=== PATIENT | male | born 1945 | race Caucasian/White ===

== ENCOUNTER 2021-12-04 11:40 | Inpatient (IN) | payer MEDICARE, OTHER, MEDICAID ==
[~2021-12-04] VITALS: Ht 185.4 cm; Wt 70.5 kg
[~2021-12-04 11:40] MED LIST: LEVOTHYROXINE100 MC2 PO; LIPITOR40 MG PO; LOW DOSE ASPIRI81 MG PO
[2021-12-09] MEDS ORDERED: PRESERVISION A1 EAC4 PO (13:21)
[2021-12-09] MEDS ORDERED: MULTI VITAMIN1 EACH PO (13:21)
[2021-12-09] MEDS ORDERED: EMERGEN-C 500500 MG PO (13:21)
[2021-12-09] MEDS ORDERED: OSTERA TABLET1 EACH PO (13:22)
[2021-12-09] MEDS ORDERED: FISH OIL 1,2001 EAC8 PO (13:22)
[2021-12-09] MEDS ORDERED: GLUCOSAMINE H1500 MG PO (13:23)
[2021-12-09] MEDS ORDERED: TURMERIC 450-51 EACH PO (13:24)
[2021-12-09] MEDS ORDERED: PROBIOTIC1 EAC6 PO (13:24)
[2021-12-14] MEDS ORDERED: LEVOTHYROXINE100 MCG PO (09:23)
--- NOTE | 2021-12-14 16:50 | EKG ---
[facility] [address] [facility] [place], [place] [address] Signed Normal sinus rhythm Normal ECG No previous ECGs available Confirmed by VALARIE PENG MD ([id number]) on 12/14/2021 4:50:46 PM Electronically Signed By: VALARIE PENG MD 12/14/21 1650 PATIENT NAME: MELL VIEIRA Electrocardiogram DATE OF : 47 PHYSICIAN: VALARIE PENG MD REPORT #: [id number] REPORT IS CONFIDENTIAL AND NOT TO BE RELEASED WITHOUT AUTHORIZATION
--- NOTE | 2021-12-19 14:14 | OR ---
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 POSTOPERATIVE DIAGNOSES: 1. 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 2. 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 PROCEDURES: 1. Laparotomy with left colectomy with end to end colocolostomy... prolonged complicated and difficult ( greater than 5 hours) 2. Partial diaphragm excision with closure. 3. Total splenectomy ANESTHESIA: General endotracheal, Nicho Vin, END MAKER and postoperative rectus sheath block. INDICATION: This 76-year-old white man, who is a patient of Dr. Kizzy Price. He was seen in October with left upper abdominal pain. A CT scan was performed, which showed thickening of the splenic flexure and the variable appearance of the inferior pole of the spleen apparently in continuity with the splenic flexure. He had numerous diverticula of the left colon. He was considered to have possible splenic flexure diverticulitis; planned followup CT scan in November confirmed ongoing concentric thickening of the splenic flexure itself and heterogeneity of the inferior pole of the spleen. On that basis, he was referred to me by Dr Price for colonoscopy. Colonoscopy was performed on December 02, 2021, with findings of diffuse B-cell lymphoma of the splenic flexure of the colon in contiguity to the lower pole of the spleen. Discussion with Dr. Estrada, medical oncologist affirms a plan for partial colectomy and splenectomy and additional treatment depending on operative findings. The patient understands the risks of bleeding, infection, anastomotic failure of the colon, and some increased hazard of infectious problems related to the splenectomy. He has undergone Pneumovax vaccination prior to splenectomy electively. Electronically Signed By: AYUSH WILLS MD 12/19/21 1414 PATIENT NAME: MELL VIEIRA OPERATIVE REPORT DATE OF : 47 REPORT #: [id number] PHYSICIAN: YAUSH WILLS MD PCP: KIZZY PRICE MD REPORT IS CONFIDENTIAL AND NOT TO BE RELEASED WITHOUT AUTHORIZATION [facility] [address] [place], [place] [address] Signed FINDINGS: The tumor of the colon was in direct contiguity to the inferior pole of spleen and impressively infiltrative into the left diaphragm. En bloc resection was undertaken including portion of the diaphragm. Numerous diverticula were noted of the left colon. The end-to-end colocolostomy was undertaken with good clinical result. There were adhesive changes to the stomach. Gerota's fascia of the left kidney was inflammed related to the tumor itself and adherent to the splenic flexure of the colon as well. The operation was quite prolonged complicated and difficult on the basis of the inflammatory and infiltrative process. Resection was complex but complete. There is believed to be no remaining lymphoma in the operative area and good viability of the colonic anastomosis. DESCRIPTION OF PROCEDURE: The patient was brought to the operating room, given a general endotracheal anesthetic. He had undergone a complete bowel prep including oral and IV antibiotics. Sequential compression device stockings were used and heparin subcutaneously administered. After satisfactory general endotracheal anesthesia, a Schwartz catheter was placed. The abdomen was clipped and prepared with chlorhexidine solution and draped sterilely. An upper midline incision was made just above the umbilicus and the abdomen was entered without problem. The patient has a thin body habitus, which was quite fortunate. Intra-abdominal inspection showed no sign of ascites or carcinomatosis. There was Endomark tattoo evidence in the splenic flexure itself. Palpation of this area showed a dense mass of the splenic flexure of the colon in continuity to the splenic inferior pole and hilum. The spleen itself was definitely not mobile and had intense infiltrative changes to the left posterolateral abdominal wall. The small bowel was otherwise normal. The colon had multiple diverticula of the descending colon. The stomach itself was normal. There was no sign of lesser sac adenopathy. The gallbladder was normal as was the liver. A small splenule was noted in the omentum on the left side. My initial inclination was to provide for splenectomy or mobilization of the spleen prior to planned colectomy. A Bookwalter retractor was affixed to the table as a slow bowel prep to the right side of the abdomen with laparotomy packs. The stomach was noted to be normal. Palpation of the lateral aspect of the spleen showed to be free in the superior posterior aspect, but quite densely adherent inferiorly in the lower pole. Indeed, there was significant edema and Endomark tattoo dye directly in the inferior pole and medial aspect of the spleen indicative of the lymphoma of the colon in contiguity to the spleen itself. Colonic mobilization was undertaken at the left colon and blunt dissection carried Electronically Signed By: AYUSH WILLS MD 12/19/21 1414 PATIENT NAME: MELL VIEIRA OPERATIVE REPORT DATE OF : 47 REPORT #: [id number] PHYSICIAN: AYUSH WILLS MD PCP: KIZZY PRICE MD REPORT IS CONFIDENTIAL AND NOT TO BE RELEASED WITHOUT AUTHORIZATION [id number] [place], [place] [address] Signed cephalad. Gerota's fascia of the left colon was identified and a plane was developed there. Further dissection on the capsule of the spleen showed the inferolateral aspect to be infiltrated to the abdominal wall. Using meticulous care and electrocautery dissection, portion of peritoneum and ultimately a portion of the diaphragm was excised in continuity with the infiltrative mass. A defect was seen within the left pleural space. There is no sign of pulmonary or pleural pathology noted. As the patient was on positive-pressure ventilation with the ventilator, there was no worry for decline in his cardiopulmonary status due to the defect in the diaphragm performed with dissection. This dissection was quite laborious and quite significantly difficult related to inflammatory changes, edema, and the tumor itself. The lateral attachments of the spleen were quite thickened and were incised with electrocautery to allow for progressive mobilization of the spleen toward the midline. There were found to be adhesions in the medial aspect of the upper pole of the spleen to the lesser curve of the stomach itself. Areas on the greater curve of the stomach ( short gastrics) were secured with clips or 3-0 silk as needed. It became clear that typical rotation of the spleen towards midline was unlikely to be forthcoming to allow for complete vascular control on its own. On that basis, the peritoneal attachments of the anterior aspect of the pancras and the splenic hilum were carefully divided, ultimately identifying the splenic artery and splenic vein. These were secured with tonsil clamps and division undertaken. Double ligation with O silk ties secured them well. There were dense adhesions to gerotas fascia posteriorly which were freed without injury to the left kidney. By this point, the spleen was entirely mobilized, and in continuity with the splenic flexure of the colon itself. The lesser sac was entered reflecting the stomach cephalad and dividing portions of the omentum in the mid colic area. This allowed for good visualization of the transverse mesocolon. The middle colic artery dominant branch was identified and incision made to the left of it to provide a margin on the lymphoma itself. Dissection was carried reasonably widely, inferiorly, and superiorly. Small branches representing the vascular arcade near the colonic wall were secured with hemostats and 0 silk ties. A SUZAN stapling device was used to transect the mid left transverse colon. Further mobility of the omentum and the mesocolon inferiorly was undertaken. There were numerous diverticula of the descending colon. An area identified as the sigmoidal branch to the sigmoid colon was identified and decided as the inferior margin of colonic resection. The left colonic mesentery was divided and sequential application of hemostats and silk ties undertaken. A SUZAN stapling device was used to Electronically Signed By: AYUSH WILLS MD 12/19/21 1414 PATIENT NAME: MELL VIEIRA OPERATIVE REPORT DATE OF : 47 REPORT #: [id number] PHYSICIAN: AYUSH WILLS MD PCP: KIZZY PRICE MD REPORT IS CONFIDENTIAL AND NOT TO BE RELEASED WITHOUT AUTHORIZATION [facility] [address] [place] [id number] Signed transect the colon just cephalad to the sigmoid itself. The specimen was carefully explanted from the abdomen. It is notable that capsular disruption occurred during the final mobilization of the spleen and although there was no spilled splenic tissue proper at least one splenule was noted in the resected specimen. The specimen was photographed, opened on the back table as well, and the lymphoma at the splenic flexure was quite notable. Irrigation was undertaken. The upper abdomen in the retroperitoneal area, the tail of pancreas could be easily identified and so far as can be told was not harmed in any way. Clips and silk sutures used for any sites that were still oozing. The area was then packed with gauze. Attention was turned to the colonic anastomosis. Although not perfectly size matched, an end-to-end colocolostomy was deemed most appropriate. This was accomplished in a 2-layer technique of interrupted 3-0 silk suture. The mesenteric defect was subsequently reapproximated with running 3-0 silk suture as well. Irrigation was undertaken throughout the abdomen and rolled laparotomy packs in the splenic bed were found to be hemostatic. Tisseel (fibrin glue) was sprayed generously in the upper abdomen near the splenic bed over the pancreas and in the region of the diaphragm. Repair of the diaphragmatic defect was certainly needed. Inspection in the pleural space showed lung, which had some pleural adhesion to the diaphragm far away from the area resected. The diaphragmatic defect was reapproximated with running 0 Prolene suture. Prior to securing the closure, a red rubber catheter was placed in the pleural space. The ict customer support officer provided full expansion of the lung and the red rubber catheter was suctioned upon its removal and then the diaphragm defect was secured with final knots. It is believed that the left pleural space have been evacuated of air and so, a postprocedure chest x-ray still pending. There were no other findings of concern in the abdomen and plans were then made for closure. Through a left lower quadrant incision, a 7-mm flat Brody drain was placed over the area of the tail of the pancreas on the unlikely possibility of pancreatic tail injury. It was secured the skin with nylon suture and attached to bulb suction. The stomach and remaining omentum were placed in the anatomic configuration. Notably, the anastomosis was in the left lower quadrant and no where near the lesser sac or pancreatic dissection had been undertaken. Attention was turned towards closure. The midline fascia was reapproximated with running bidirectional #1 PDS suture. Subcutaneous tissue was irrigated and skin was closed with running subcuticular 3-0 Vicryl. Steri-Strips were applied as was Acticoat dressing. The retroperitoneal drain on the left was attached to bulb suction and similarly dressed. He was ultimately extubated and transferred to the recovery room in Electronically Signed By: AYUSH WILLS MD 12/19/21 1414 PATIENT NAME: MELL VIEIRA OPERATIVE REPORT DATE OF : 47 REPORT #: [id number] PHYSICIAN: AYUSH WILLS MD PCP: KIZZY PRICE MD REPORT IS CONFIDENTIAL AND NOT TO BE RELEASED WITHOUT AUTHORIZATION [address] [address] Signed good condition having suffered no known complications. Blood loss was 300 mL. A postoperative chest x-ray is anticipated so as to assure no sign of excessive pneumothorax from partial diaphragmatic excision. MD STU Vilchis/NÉSTOR /[id number] cc: MD Antonio Jovel MD Copies: KIZZY PRICE MD, ROBERT C MD ~ Electronically Signed By: AYUSH WILLS MD 12/19/21 1414 PATIENT NAME: MELL VIEIRA OPERATIVE REPORT DATE OF : 47 REPORT #: [id number] PHYSICIAN: AYUSH WILLS MD PCP: KIZZY PRICE MD REPORT IS CONFIDENTIAL AND NOT TO BE RELEASED WITHOUT AUTHORIZATION
[2021-12-21] MEDS ORDERED: GAS RELIEF125 M1 PO (16:30)
[2021-12-21] MEDS ORDERED: FAMOTIDINE20 MG PO (16:30)
[2021-12-21] MEDS ORDERED: ACETAMINOPHEN500 MG PO (16:30)
[2021-12-21] MEDS ORDERED: IBUPROFEN600 MG PO (16:30)
--- NOTE | 2021-12-22 15:53 | DS ---
[facility] [address] [place], [place] [address] Signed ADMISSION DATE: 12/13/2021 DISCHARGE DATE: 12/21/2021 REASON FOR ADMISSION: This 76-year-old white man is a patient of Dr. Kizzy Price and was seen in October with left upper abdominal pain. CT scan was performed, which showed thickening of the splenic flexure and variable appearance of the inferior pole of the spleen in continuity with the splenic flexure. He had numerous diverticula of the left colon. He was considered to have possible splenic flexure diverticulitis. Plan followup CT scan in November confirmed ongoing concentric thickening of the splenic flexure itself and had originating of the inferior pole of the spleen and on that basis, he was referred by Dr. Price for colonoscopy. Colonoscopy performed by [place] on December 02, 2021, confirmed findings of diffuse B-cell lymphoma, splenic flexure of the colon in contiguity with the lower pole of the spleen. He is admitted at this time to undergo left partial colectomy and splenectomy in continuity for diffuse B-cell lymphoma. PERTINENT PHYSICAL EXAMINATION: GENERAL: Showed a thin white man, in no acute distress. NECK: Trachea is midline. LYMPHATIC: He had no supraclavicular or axillary adenopathy. ABDOMEN: Abdominal palpation showed no sign of splenic enlargement. He had no ascites. EXTREMITIES: Show no clubbing, cyanosis, or edema. HOSPITAL COURSE: On December 13, 2021, he underwent a midline laparotomy with left colectomy with end-to-end colocolostomy as well as resection of the spleen in continuity with the colon as well as partial diaphragm excision. Notably, the tumor included the splenic flexure. The lower pole of the spleen with a direct penetration into the left lower lateral diaphragmatic wall. Partial left diaphragm resection was performed in continuity.Repair of the diaphragm was undertaken concurrently. A drain was placed in the area of the splenic bed resection given the complexity of the excision and in caution for any type of pancreatic tail fluid leak. Postoperatively, he did quite well initially, but then developed a generalized ileus. He did not require a nasogastric tube. The ileus resolved with correction of his electrolytes and supportive care and he advanced in his diet, ultimately tolerating a regular diet. The peripancreatic drain that had been placed showed drainage only of serosanguineous fluid. Some of the fluid was obtained for evaluation and showed minimal amylase level and it was removed on the day of discharge. By the day of discharge, he is ambulating well, tolerating a regular diet without problem, has minimal incisional pain managed only by non-opiate medications. Electronically Signed By: AYUSH WILLS MD 12/22/21 1553 PATIENT NAME: MELL VIEIRA DISCHARGE SUMMARY DATE OF : 47 REPORT #: [id number] PHYSICIAN: AYUSH WILLS MD PCP: KIZZY PRICE MD REPORT IS CONFIDENTIAL AND NOT TO BE RELEASED WITHOUT AUTHORIZATION [address] [address] Signed It is anticipated he will have further evaluation by Dr. Citlalli Shi, medical oncologist. This likely will include bone marrow biopsy and other interventions. To our knowledge, he has no residual lymphoma grossly and his final pathology report is still pending. FOLLOWUP PLAN: He is return to see me in approximately 3-4 weeks. He will call on Thursday to set up an appointment. Additionally, we will coordinate a medical oncology consultation with Dr. Shi. DISCHARGE MEDICATIONS: 1. Ibuprofen 600 mg p.o. q.6 hours as needed for pain, #30. 2. Also, Tylenol 500 mg two tablets p.o. q.6 hours as needed for pain, #30. 3. Simethicone 125 mg two tablets one p.o. q.6 hours as needed for "gas" #30, refill one. 4. Famotidine 20 mg p.o. b.i.d. #60, refill one. He will continue taking with his usual medications of: 1. Lipitor 40 mg p.o. daily. 2. Aspirin 81 mg p.o. daily. 3. Vitamin C. 4. PreserVision supplement one p.o. daily. 5. Multivitamin one p.o. daily. 6. Vitamin C 500 mg chewable tab p.o. daily. 7. Vitamin D one tablet p.o. daily. 8. Glucosamine 1500 mg p.o. daily. 9. Probiotic one tablet p.o. daily. 10. Turmeric capsule one p.o. daily. 11. Synthroid 100 mcg p.o. daily. DISCHARGE DIAGNOSIS: 1. Diffuse B-cell lymphoma at splenic flexure, contiguous with lower pole of the spleen and involvement of the portion of left diaphragm (status post complete resection with end-to-end colocolostomy). 2. Hypothyroidism. 3. Dyslipidemia. Ayush Wills MD Electronically Signed By: AYUSH WILLS MD 12/22/21 1553 PATIENT NAME: MELL VIEIRA ALEA DISCHARGE SUMMARY DATE OF : 47 REPORT #: [id number] PHYSICIAN: AYUSH WILLS MD PCP: KIZZY PRICE MD REPORT IS CONFIDENTIAL AND NOT TO BE RELEASED WITHOUT AUTHORIZATION [address] [place] [address] Signed /NÉSTOR /[id number] cc: MD Kizzy Edmonds MD Copies: CITLALLI SHI MD, RUSSEL J MD ~ Electronically Signed By: AYUSH WILLS MD 12/22/21 1553 PATIENT NAME: MELL VIEIRA DISCHARGE SUMMARY DATE OF : 47 REPORT #: [id number] PHYSICIAN: AYUSH WILLS MD PCP: KIZZY PRICE MD REPORT IS CONFIDENTIAL AND NOT TO BE RELEASED WITHOUT AUTHORIZATION
== END 2021-12-21 17:30 | disposition home or self-care (01) | DRG 821 ==
LOC: DSVR 12-13 09:00 → MS 12-13 09:00 → DS 12-13 13:25 → EDSTATUS 12-13 13:30 → DS 12-13 13:30 → MS 12-13 13:43
PROVIDERS: ADMIT Surgery; ATTEND Surgery
PROC: 0BBT0ZZ Excision of Diaphragm, Open Approach (ICD-10-PCS; 2021-12-13)
PROC: 07TP0ZZ Resection of Spleen, Open Approach (ICD-10-PCS; principal; 2021-12-13 13:25)
PROC: 0DTG0ZZ Resection of Left Large Intestine, Open Approach (ICD-10-PCS; 2021-12-13 13:25)
DX: C83.33 Diffuse large B-cell lymphoma, intra-abdominal lymph nodes (principal); C79.89 Secondary malignant neoplasm of other specified sites; K91.89 Other postprocedural complications and disorders of digestive system; K56.7 Ileus, unspecified; K57.30 Diverticulosis of large intestine without perforation or abscess without bleeding; E03.9 Hypothyroidism, unspecified; E78.5 Hyperlipidemia, unspecified; Z96.643 Presence of artificial hip joint, bilateral; Z20.822 Contact with and (suspected) exposure to COVID-19
CPT/HCPCS: 36415; 71045; 74018; 76942; 80048; 80053; 82150; 85025; 85060; 86850; 86900; 86901; 86922; 88305; 93005; 93010; A9270; C9803; J0694; J1100; J1644; J1885; J2001; J2270; J2370; J2405; J2704; J2795; J3010; J7121; U0003

== ENCOUNTER 2022-01-27 15:12 | Inpatient (IN) | payer MEDICARE, OTHER, MEDICAID ==
[~2022-01-27] VITALS: Ht 185.4 cm; Wt 69.0 kg
[~2022-01-27 15:12] MED LIST changes: +ACETAMINOPHEN500 MG PO; +FAMOTIDINE20 MG PO; +FISH OIL 1,2001 EAC8 PO; +GAS RELIEF125 M1 PO; +GLUCOSAMINE H1500 MG PO; +IBUPROFEN600 MG PO; +LEVOTHYROXINE100 MCG PO; +MULTI VITAMIN1 EACH PO; +PRESERVISION A1 EAC4 PO; +PROBIOTIC1 EAC6 PO; +TURMERIC 450-51 EACH PO; +VITAMIN C1000 MG PO; +VITAMIN D325 MCG PO
--- NOTE | 2022-01-28 02:26 | NUR ---
PATIENT ARRIVED TO THE FLOOR VIA STRETCHER. PATIENT ABLE TO PIVOT XFER WITH MINIMAL ASSISTANCE. VITALS TAKEN AND RECORDED. NG TO LWIS. IV INFUSING PER ORDER. PATIENT RATES PAIN AT A 2/10 AND DENIES THE NEED FOR PAIN MEDICATION AT THIS TIME. PATIENT DENIES ANY NAUSEA. PATIENT PLACEDON TELE #1O PER ORDER. PATIENT IS ON RA. CHELSEA RN REMAINS IN ROOM TO COMPLETED ADMISSION. ASSESMENT COMPLETED. CALL LIGHT IN REACH.
--- NOTE | 2022-01-28 02:42 | NUR ---
BOLUS FROM ED COMPLETED INFUSING. PATIENTS IV NOW INFUSING PER ORDER. PATIENT IS RESTING IN BED. PATIENT DENIES ANY PAIN OR NASUEA. NO NEEDS NOTED. CALL LIGHT IN REACH.
--- NOTE | 2022-01-28 03:46 | NUR ---
PT COMPLAINED OF 5/10 ABD PAIN. MEDICATED. IV CONTINUES PER JUN, NG TO SUCTION, HOB ELEVATED. EYES CLOSED, RESPONDS TO QUESTIONS. HAS USED THE URINAL SINCE ADMISSION. BED ALARM CONTINUES FOR SAFETY.
--- NOTE | 2022-01-28 03:48 | NUR ---
EMPTIED THE URINAL.
--- NOTE | 2022-01-28 04:28 | NUR ---
PATIENT IS RESTING IN BED WITH EYES CLOSED, RR 17. CALL LIGHT IN REACH.
--- NOTE | 2022-01-28 05:56 | NUR ---
PATIENTS VITALS TAKEN AND RECORDED. PATIENTS NG TO LWIS. PATIENTS IV INFUSING PER ORDER. PATIENTS INTAKE AND OUTPUT RECORDED. PATIENT DENIES ANY PAIN OR NAUSEA. NO NEEDS NOTED. CALL LIGHT IN REACH.
--- NOTE | 2022-01-28 07:41 | NUR ---
IV pump alarming, new bag IVF hung per order. Pt requests pain medication for 5/10 abd pain, 0.5mg dilaudid provided. Primary RN notified. Pt urinal emptied. no further needs at this time, call light in reach.
--- NOTE | 2022-01-28 07:45 | NUR ---
bed alarm going off, trying to get out of bed. ngt in place, back to bed, alarms on
--- NOTE | 2022-01-28 08:10 | NUR ---
WENT INTO PATIENT'S ROOM TO PUT MY NAME ON THE WHITEBOARD. PATIENT SAID HE WAS SWEATING SO I TOOK HIS TEMPUTURE IT WAS 98.1. SO I GAVE HIM A COOL WASH CLOTH TO PUT ON HIS FOREHEAD. NURSE NOTIFIED.
--- NOTE | 2022-01-28 08:15 | NUR ---
Spoke with Will. He states he cont. to live in a 1 story home alone. He has walking sticks if needed, but does not normally use. He provides his own care and does own shopping and cooking. His neighbors assisted him following his last surgery and brought in food, shopped, and transported him cynthia and to Dr.s bruner. They will assist him again. Pt denies needs and plans on dc to home. Denies financial issues.
--- NOTE | 2022-01-28 08:29 | NUR ---
eyes closed, on room air, NGT patent to LIWS. call light and oral swas at hands reach NPO. was medicated earlier per abd pain. Bed alarms in place
--- NOTE | 2022-01-28 10:28 | NUR ---
NGT TO LIWS, EYES CLOSED, NO RESP DISTRESS, CALL LIGHT AT HANDS REACH, BED ALARM IN PLACE
--- NOTE | 2022-01-28 10:47 | NUR ---
C/O ABD PAIN, MOANING, AWAKE, ALERT, MEDICATED WITH MORPHINE 4MG IV. RNGT TO LIWS IN PLACE DRAINING DARK BROWN DRAINAGE. USES URINAL. IVF INFUSING, NPO, ORAL SPONGES AT BEDSIDE
[2022-01-28] MEDS ORDERED: BORON PO (11:30)
--- NOTE | 2022-01-28 11:31 | NUR ---
MED REC COMPLETE
--- NOTE | 2022-01-28 12:13 | NUR ---
DR MOCTEZUMA IN ROOM TALKING TO PT ABOUT SURGERY, SURGICAL CONSENT SIGNED. CHLORHEININE WIPE DOWN DOWN, SCDS IN PLACE, CLEAN GOWN. PT UP TO CHAIR, CLEAN LINEN. SAV WHITMORE TO IRENA, PATENT. PT REASSURED, CLAMED DOWN, PROCEDURE PREOP AND POST OP EXPECTATIONS EXPLAINED, QUESTIONS ANSWERED TO HIS SATISFACTIO. CALL LIGHT AT HANDS REACH
--- NOTE | 2022-01-28 12:24 | NUR ---
PT TAKEN DOWN TO OR VIA BED BY OR NURSE RAMON
--- NOTE | 2022-01-28 12:30 | NUR ---
dakota in pacu notified of new order for cefoxitin, pt takes earlier to OR
--- NOTE | 2022-01-28 16:35 | NUR ---
76 YEAR OLD MALE PATIENT ADMITTED TO CCU FROM PACU WITH DX OF S/P COLECTOMY. REPORT RECIEVED FROM USER EXPERIENCE TEAM LEAD. PATIENT IS AWAKE, DENIES PAIN AT THIS TIME. NG TO CONTINUOUS LOW SUCTION. NO DRAINAGE NOTED, ABD BINDER IN PLACE. RODRIGUEZ CATH PATENT. ART LINE TO RIGHT RADIAL ARTERY INTACT AND ZEROED PER PROTOCOL. BP 9O/50. SCD'S ON. PATIENT IS ABLE TO FOLLOW COMMANDS AND ANSWERE QUESTIONS.
--- NOTE | 2022-01-28 16:49 | EKG ---
[facility] [address] [facility] [place] [address] Signed Sinus rhythm with premature supraventricular complexes Nonspecific ST abnormality Prolonged QT Abnormal ECG When compared with ECG of 13-DEC-2021 10:32, premature supraventricular complexes are now present ST now depressed in Inferior leads QT has lengthened Confirmed by VALARIE PENG MD ([id number]) on 01/28/2022 4:48:38 PM Electronically Signed By: VALARIE PENG MD 01/28/22 1648 PATIENT NAME: ISHAMELL ALEA Electrocardiogram DATE OF : 47 PHYSICIAN: VALARIE PENG MD REPORT #: [id number] REPORT IS CONFIDENTIAL AND NOT TO BE RELEASED WITHOUT AUTHORIZATION
--- NOTE | 2022-01-28 17:05 | NUR ---
01/28/22 1705 Chelsey Mckeon 1602 PT ARRIVED IN PACU AWAKE WITH NO C/O'S. ART LINE AND ABD BINDER IN PLACE FROM SURGERY. 1615 CCU RN AT BEDSIDE. PT WITH NO C/O'S. 1635 REPORT GIVEN TO CCU RN. BED PLUGGED IN.
--- NOTE | 2022-01-28 17:55 | NUR ---
SLEEPING, WAVE FORM TO ART LINE DAMPEN AT TIMES. REMAINS ON RA WOTH SAT 93-96. LAYING FLAT ON BACK.
--- NOTE | 2022-01-28 18:45 | NUR ---
DILAUDID 0.5 MG IV GIVEN FOR PAIN, REPOSITIONED TO RIGHT SIDE.
--- NOTE | 2022-01-28 20:32 | NUR ---
PATIENT RESTING IN BED. REPORTS BEING COMFORTABLE AT THIS TIME. DRESSING TO ABD CLEAN DRY AND INTAXT WITH ABD BINDER. RODRIUGEZ CATH DRAINING YELLOW URINE TO BEDSIDE BAG. ORAL CARE PROVIDED. NG TUBE TO LEFT NARE TO LIS. CALL LIGHT IN REACH AND CAN MAKE NEEDS KNOWN.
--- NOTE | 2022-01-28 22:01 | NUR ---
DR MOCTEZUMA CALLED FOR UPDATE ON PATIENTS BP. ORDER FOR STAT LACTIC ACID NOW. IF RESULTS GREATER THAN 2.0 GIVE A 500ML BOLUS OF LR X1 AND REPEAT LACTIC ACID IN 3 HOURS. ORDERS FOR MAP 60-65.
--- NOTE | 2022-01-28 22:08 | NUR ---
LAB AT BEDSIDE FOR DRAW. NG DRAINING DARK BROWN DISCHARGE TO LIS. ABD DRESSING REMAINS CLEAN DRY AND INTACT. ABD SOFT, TENDER WITH PALPATION. ABD BINER IN PLACE. CALL LIGHT IN REACH.
--- NOTE | 2022-01-28 22:39 | NUR ---
DR MOCTEZUMA NOTIFIED OF CRITICAL LACTIC ACID OF 2.2. 500ML BOLUS OR LR WILL BE GIVEN AND REPEAT LACTIC 3 IN 3 HOURS WILL BE ORDERED PER DR GONZALEZ. NOTIFIED OR ART LINE DC AND CLARIFIED DC RODRIGUEZ ORDERS. RODRIGUEZ WILL BE DC'D TOMORROW.
--- NOTE | 2022-01-29 00:23 | NUR ---
PATIENT CALLED FOR A MOUTH SWAB. RATES PAIN TO ABD 2/10. REPOSITIONED IN BED. EDUCATED ON MEDICATIONS. VS STABLE.
--- NOTE | 2022-01-29 02:29 | NUR ---
PATIENT CALLED FOR HELP REPOSITIONING. PILLOWS ADJUSTED. DENIES ANY OTHER NEEDS AT THIS TIME.
--- NOTE | 2022-01-29 05:21 | NUR ---
PATIENT RESTING IN BED. VS STABLE. CALL LIGHT IN REACH.
--- NOTE | 2022-01-29 07:30 | NUR ---
REPORT RECIEVED. PATIENT IS SLEEPING. NO DISTRESS NOTED.
--- NOTE | 2022-01-29 07:50 | NUR ---
Spoke with Will. He states bed is uncomfortable. NG remains in place and he states he is just not comfortable. He also states is concerned as he has an appt with the [facility] tomorrow and has not been able to notify them. Let him know I will call them with an update. Notified RN pt is uncomfortable.
--- NOTE | 2022-01-29 08:15 | NUR ---
AWAKE, ASSESSMENT DONE. NG TO LCS, DRAINAGE IS DARK BROWN IN COLOR. DENIES NAUSEA. ABD BINDER IN PLACE, OPEN UP ABD BINDER TO ASSESS ABD, NO BOWEL SOUNDS HEARD AT THIS TIME. DRESSING TO INCISION IS DRY AND INTACT. RODRIGUEZ CATH PATENT. C/O INCREASED ABD PAIN WITH COUGH AND MOVEMENT. ENC CDB. I.S. IS AT BEDSIDE. TALTO PATIENT ABOUT POC FOR THE DAY, INDICATES UNDERSTANDING.
--- NOTE | 2022-01-29 09:30 | NUR ---
DILAUDID 0.5 MG IV GIVEN FOR POST-OP PAIN.
--- NOTE | 2022-01-29 09:57 | NUR ---
TURNED TO RIGHT SIDE. MORE COMFORTALBE AFTER DILAUDID GIVEN AND POSITION CHANGE. WATCHING TV.
--- NOTE | 2022-01-29 11:07 | NUR ---
NO CHANGES, RESTING.
--- NOTE | 2022-01-29 12:10 | NUR ---
ASSESSMENT DONE. NO CHANGES IN ASSESSMENT. STATES THE PAIN MED HE HAD EARLIER DID HELP FOR A WHILE.
--- NOTE | 2022-01-29 12:45 | NUR ---
DR. MOCTEZUMA HERE TO SEE PATIENT. ORDERS RECIEVED. NG TUBE CLAMPED PER ORDERS. PLAN IS TO DC NGT AT 4 PM TODAY IF PATIENT NOT NAUSEATED AND RESIDUAL CHECK AT 4 IS < 250 ML. PATIENT IS AWARE OF THE POC.
--- NOTE | 2022-01-29 12:50 | NUR ---
OOB TO CHAIR WITH ASSIST. ADLS DONE. PATIENT MOVING WELL. HR TO 120 W/MOVEMENT, AT REST HR 108. DENIES DIZZINESS OR SHORTNESS OR BREATH WITH MOVEMENT.
--- NOTE | 2022-01-29 16:00 | NUR ---
stood at bedside to void, VOIDED 150 ML URINE. BACK TO BED WITH ASSIST. NG ASPIRATED FOR 70 ML OF STOMACH CONTENTS. NG DC'D PER ORDERS GIVEN EARLIER TODAY. TOLERATED WELL. ASSESSMENT DONE. IVF CONTINUES TO INFUSE AT 85 ML/HR.
--- NOTE | 2022-01-29 17:02 | NUR ---
RESTING WITH HOB ELEVATED.
--- NOTE | 2022-01-29 18:00 | NUR ---
DR. MOCTEZUMA UPDATED ON PATIENT DAY. ORDERS RECIEVED TO INCREASE DILAUDID TO Q 3 HR FOR Q 4 HR. IS AWARE OF URINE OUTPUT, WILL DO BLADDER SCAN, IF URINE > 300 ML, RODRIGUEZ TO BE PLACED.
--- NOTE | 2022-01-29 18:30 | NUR ---
BLADDER SCAN = 151.
--- NOTE | 2022-01-29 19:07 | NUR ---
REPORT TO NEXT SHIFT.
--- NOTE | 2022-01-29 19:10 | NUR ---
REPORT TO NEXT SHIFT. PATIENT IS RESTING NOW.
--- NOTE | 2022-01-29 19:30 | NUR ---
REPORT RECEIVED FROM TANYA RUBIO.
--- NOTE | 2022-01-29 19:45 | NUR ---
PT CALLS FOR ASSISTANCE USING URINAL, UP OUT OF BED, STEADY ON FEET. WAS ABLE TO VOID 150ML YELLOW URINE, BACK TO BED. C/O SOME PAIN WITH GETTING UP BUT STATES IT IS SUBSIDING ONCE HE IS BACK IN BED. ASSESSMENT DONE, ABD DRESSING CDI. PT IS ALERT AND ORIENTED, LUNGS CLEAR. IVF INFUSING. CALL LIGHT IN REACH.
--- NOTE | 2022-01-29 21:14 | NUR ---
PT CALLS TO ASK FOR PAIN MEDICATION BEFORE BED. 0.5MG IV DILAUDID GIVEN FOR 4/10 ABDOMINAL PAIN. PT FELT WARM, TEMPORAL TEMP 99.4. REMINDED PT TO USE IS, EDUCATION GIVEN AND PT WAS ABLE TO DO WELL WITH IT.
--- NOTE | 2022-01-29 23:52 | NUR ---
PT CALLED FOR ASSIST UP TO USE URINAL, VOIDED 250ML THEN BACK TO BED. ASSESSMENT DONE, DRESSING REMAINS CDI. PT REQUESTS PAIN MEDICATION SOON IT IS DUE TO HELP HIM SLEEP.
--- NOTE | 2022-01-30 01:15 | NUR ---
PT RESTING WITH EYES CLOSED, RESP EVEN AND UNLABORED, HR 90'S. RR 10, SPO2 98% ON ROOM AIR.
--- NOTE | 2022-01-30 03:13 | NUR ---
PT CALLS FOR ASSISTANCE WITH GETTING UP TO VOID, BACK TO BED, REQUESTS PAIN MEDICATION.
--- NOTE | 2022-01-30 07:07 | NUR ---
PT UP TO VOID AND THEN UP TO CHAIR, CALL LIGHT IN HAND.
--- NOTE | 2022-01-30 07:30 | NUR ---
PATIENT SHIFT REPORT RECIEVED FROM GENERAL LABOR RN. PATIENT RESTING IN THE CHAIR AT THIS TIME. PATIENT CALLS APPROPRIATELY. WILL CONTINUE TO CLOSELY MONITOR.
--- NOTE | 2022-01-30 08:30 | NUR ---
THIS RN AND STUDENT RN SARAHI IN TO DO PATIENTS ASSESSMENT. PATIENT SITTING IN THE CHAIR. PATIENT REQUESTED TO GET BACK TO BED AND REQUESTED PAIN MEDICATION. PATIENTS PAIN IS 4/10 TO THE ABD. PATIENT BOWEL TONES HYPOACTIVE. SOME PAIN WITH PALPITATION. BREATH SOUNDS CLEAR. RR- EVEN AND UNLABORED. PATIENTS DRESSING TO HIS ABD IS C/D/I. NO PITTING EDEMA. WILL CONTINUE TO CLOSELY MONITOR.
--- NOTE | 2022-01-30 09:40 | NUR ---
CALLED MD MOCTEZUMA FOR CRITICAL LAB VALUE OF HEMOGLOBIN 5.9. LEFT A VOICEMAIL FOR MD TO CALL BACK CCU IN REGARDS TO PATIENT IN ROOM 130. CALLED OR CHARGE TO SEE IF MD WAS IN HOUSE. MD IS NOT IN HOUSE.
--- NOTE | 2022-01-30 09:51 | NUR ---
CALLED INTERNAL CONTROLS SPECIALIST AND UPDATED THAT MD DID NOT ANSWER PHONE AND THIS RN LEFT A VOICEMAIL. PATIENT IS NOT CURRENTLY BLOOD BANDED. PATIENTS HR 90'S-100. BP- 80-90'S SYSTOLIC. NO BLEEDING NOTED ON DRESSING TO PATIENTS ABD.
--- NOTE | 2022-01-30 10:15 | NUR ---
MD CALLED BACK WITH NEW ORDERS TO TRANSFUSE 2 UNITS OF PRBC AND TO DO A LACTIC LEVEL. SEE NEW ORDERS. MD STATED "I WILL BE IN SHORTLY TO EVALUATE THE PATIENT". UPDATED MD THAT PER ASSESSMENT NO BLOOD PRESENT ON DRESSING, NO BRUISING NOTED TO ABD OR FLANKS. PATIENTS VITALS ARE BP 80-90'S SYSTOLIC AND HR 90'S-100'S. PATIENT DENIES DIZINESS AT THIS TIME. PATIENT GENERALLY FEELS UNWELL.
--- NOTE | 2022-01-30 11:20 | NUR ---
MD STILL HAS NOT ARRIVED TO SEE PATIENT. BLOOD IS ALMOST READY PER TELEPHONE QUOTATION CLERK. CALLED MD BECAUSE PATIENT DOES NOT HAVE A BLOOD CONSENT SIGNED. WILL CONTINUE TO CLOSELY MONITOR.
--- NOTE | 2022-01-30 12:20 | NUR ---
UKATU IN TO SEE PATIENT. REVIEWED PATIENTS INCISION AND ABD. MD FEELS THOUGH HIS H/H DROP IS DILUTIONAL. PATIENTS BP REMAINS 80'S-100'S SYSTOLIC AND HR 90'S-100'S. PATIENT DENIES DIZZINESS. REVIEWED POSSIBILITES WITH PATIENT. WILL REDRAW LABS AT 1500. WILL ORDER PATIENT AND ABD DRESSING AND PT ORDER PER MD. NO OTHER NEEDS AT THIS TIME. REVIEWED CONSENT WITH STITCHER SET UP OPERATOR AUTOMATIC AND PER STITCHER SET UP OPERATOR AUTOMATIC STAFF COULD UTILIZE CURRENT CONSENT FOR BLOOD. BLOOD STARTED AT 1200. THIS HAS REMAINED AT THE BEDSIDE SINCE. TRANFUSION STARTED AT 85MLS AND THEN INCREASED TO 200MLS/HR. PATIENT TOELRATING WELL. WILL CONTINUE TO CLOSELY MONITOR.
--- NOTE | 2022-01-30 12:30 | NUR ---
MD BRAGA REMOVED PATIENTS DRESSING WHEN HE WAS IN TO SEE PATIENT. REQUESTED A MEDIPORE DRESSING TO BE REAPPLIED. DRESSING PLACED. PATIENT HAS MICKI TO THE MID ABD. NO SEPERATION NOTED. NO DRAINAGE NOTED. WILL CONTINUE TO CLOSELY MONITOR.
--- NOTE | 2022-01-30 14:12 | NUR ---
THIS SN INTO PT ROOM WITH PRIMARY NURSE TO GIVE PRN PAIN MEDICATION AND BEGIN SECOND UNIT OF BLOOD (SEE EMAR). PT REPORTS PAIN OF 5. PT LYING IN BED SLEEPING WITH TV ON.
--- NOTE | 2022-01-30 16:00 | NUR ---
PATIENTS 2ND UNIT OF PRBC COMPELTED. PATIENT TOLERATED BOTH UNITS WELL WITH NO ISSUES. PATIENTS BLOOD PRESSURES HAVE BEEN IN THE 100'S SYSTOLIC. HR TRENDING BETWEEN 85-100'S. PATIENT NOW RESTING AT THIS TIME. UPDATED ON PLAN OF CARE. MD BRAGA ADVANCED PATIENTS DIET TO CLEAR LIQUID. ALSO REQUESTED ABD BINDER TO BE PLACED. WILL CONTINUE TO CLOSELY MONITOR.
--- NOTE | 2022-01-30 16:30 | NUR ---
PER MD BRAGA PATIENT CAN ADVANCE TO CLEAR LIQUID DIET. SEE NEW ORDERS. CLEAR LIQUID TRAY ORDERED FOR DINNER. WILL CONTINUE TO CLOSELY MONITOR.
--- NOTE | 2022-01-30 16:45 | PATH ---
[facility] [address], [place] [address] Signed SPECIMEN(S): A SMALL BOWEL SPECIMEN SOURCE: A. SMALL BOWEL CLINICAL HISTORY: Bowel obstruction, left partial colectomy. FINAL PATHOLOGIC DIAGNOSIS: Small bowel and colon segments, segmental resections: - Segment of benign small bowel, negative for malignancy. - Segment of necrotic bowel, negative for atypical features or evidence of malignancy. - See comment. COMMENT: A segment of bowel is grossly consistent with large bowel, however, confirmation of the origin of the bowel is not possible as there is extensive mucosal necrosis and hemorrhage. Some of the histologic features favor a segment of necrotic small bowel. Clinical correlation requested. JVR:kristina:[id number] MICROSCOPIC EXAMINATION: Histologic sections of all submitted blocks are examined by light microscopy. These findings, together with the gross examination, support the pathologic diagnosis. GROSS DESCRIPTION: The specimen, labeled "FWE A," is received in formalin and consists of previously opened unoriented segment of small bowel with two stapled resection margins that measure 8 cm in length and 1.5 cm diameter, wall thickness is 0.2 cm. The attached mesentery measures 8 x 6.5 x 2 cm. Also, in the same container previously opened unoriented segment of colon with two stapled resection margins and mesentery that measures 80 cm in length and 7.5 cm in maximum width, wall thickness is 0.3 cm. Attached mesentery measures 3 x 6.5 x 1.5 cm. The small bowel serosal surface is pink smooth glistening and mucosa is folded pink, grossly unremarkable. No distinct lymph nodes identified within the mesentery. The colonic mucosa is diffusely hyperemic dark brown, and mucosa is folded PATIENT NAME: MELL VIEIRA PATHOLOGY DATE OF : 47 REPORT #: [id number] PHYSICIAN: SERENITY RINCON PCP: KIZZY ALEJANDRA MD REPORT IS CONFIDENTIAL AND NOT TO BE RELEASED WITHOUT AUTHORIZATION [facility] [address], [place] [address] Signed hyperemic dark brown, focally flattened, no distinct lesions grossly identified. No distinct lymph nodes identified within the mesentery. The freight representative sections are submitted in cassettes A1A5. A1: Small bowel resection margins A2: Small bowel wall full-thickness A3: Colonic resection margins A4-A5: Colonic wall full-thickness KV (under the direct supervision of a pathologist) The Gross Description was prepared using a voice recognition system. The report was reviewed for accuracy; however, sound-alike word errors, addition and/or deletions may occur. If there is any question about this report, please contact Client Services. PERFORMING LABORATORY: The technical component was performed by [facility], [address] [place] [id number] (CLIA# [id number]). Professional interpretation was performed by [facility] - [facility], [address] [place] [address], [place] [address] (CLIA#: [id number]). Diagnostician: Sudhakar Braun MD Pathologist Electronically Signed 01/30/2022 Copies: ~ PATIENT NAME: MELL VIEIRA PATHOLOGY DATE OF : 47 REPORT #: [id number] PHYSICIAN: SERENITY PATHOLOGY PCP: KIZZY ALEJANDRA MD REPORT IS CONFIDENTIAL AND NOT TO BE RELEASED WITHOUT AUTHORIZATION
--- NOTE | 2022-01-30 18:46 | NUR ---
PATIENT UP TO THE BEDSIDE TO URINATE AND REPOSITION. PATIENT TOLERATED WELL. PATIENT HAD A FEW SIPS OF HIS CLEAR LIQUID TRAY. PATIENT HAS CALL LIGHT WITHIN REACH. SCD'S REAPPLIED. WILL CONTINUE TO CLOSELY MONITOR.
--- NOTE | 2022-01-30 19:43 | NUR ---
REPORT RECEIVED FROM DAY SHIFT RN. PT IS SITTING UP IN BED AND APPEARS COMFORTABLE. VSS. NO DISTRESS NOTED. CALL LIGHT AT HAND. WILL CONT TO MONITOR.
--- NOTE | 2022-01-30 21:38 | NUR ---
PT STOOD AT BEDSIDE TO USE URINAL. TOLERATING IVF. LABS DRAWN ORDERED; H&H IMPROVING. VSS. CALL LIGHT AT HAND. WILL CONT TO MONITOR.
--- NOTE | 2022-01-31 00:06 | NUR ---
PT W/ C/O MILD ABDOMINAL PAIN- PRN PAIN MEDICATION ADMINISTERED ORDERED. VSS. TOLERATING IVF. NO DISTRESS NOTED. CALL LIGHT WITHIN REACH. WILL CONT TO MONITOR.
--- NOTE | 2022-01-31 02:56 | NUR ---
PT UP AT BEDSIDE TO USE URINAL. REPOSITIONS IN BED W/ ASSIST. VSS. NO DISTRESS NOTED AT THIS TIME. CALL LIGHT WITHIN REACH. WILL CONT TO MONITOR.
--- NOTE | 2022-01-31 04:45 | NUR ---
PRN PAIN MEDICATION ADMINISTERED ORDERED. TOLERATING IVF. PT USED URINAL AT BEDSIDE. VSS. NO DISTRESS NOTED. CALL LIGHT WITHIN REACH. WILL CONT TO MONITOR.
--- NOTE | 2022-01-31 07:30 | NUR ---
PATIENT SHIFT REPORT RECIEVED FROM SIDE HEMMER RN. PATIENT RESTING IN BED WITH HIS EYES CLOSED. PER REPORT PATIENT SLEPT WELL. PATIENT CALLS APPROPRIATELY. CALL LIGHT IN REACH. PATIENT REMAINS ON THE MONITOR. VITALS STABLE.
--- NOTE | 2022-01-31 09:30 | NUR ---
PATIENT ASSESSMENT COMPLETED. PATIENT SLEPT LONGER THIS AM. CLEAR LIQUID TRAY PROVIDED. PATIENTS BREATH SOUNDS CLEAR. RR- EVEN AND UNLABORED. INCENTIVE SPIROMETER ENCOURAGED. PATIENTS ABD DRESSING IS C/D/I. ABD BINDER IN PLACE. PATIENT REPORT PAIN HAS CONTINUED TO IMPROVE AND NEEDS LESS PAIN MEDICATION THROUGHOUT THE DAY. BOWEL TONES HYPOACTIVE. ASSISTED PATIENT TO REPORSITION IN BED FOR COMFORT. NO OTHER NEEDS AT THIS TIME. WILL CONTINUE TO CLOSELY MONITOR.
--- NOTE | 2022-01-31 11:07 | OR ---
[address] [address] Signed DATE OF OPERATION: 01/28/2022 SURGEON: Kirit Moctezuma MD PREOPERATIVE DIAGNOSIS: Small bowel obstruction. POSTOPERATIVE DIAGNOSES: Small bowel obstruction, ischemic bowel. PROCEDURES PERFORMED: Exploratory laparotomy, partial small bowel resection, primary anastomosis. ANESTHESIA: General endotracheal anesthesia. ESTIMATED BLOOD LOSS: 100 mL. COMPLICATIONS: None. SPECIMENS: Small bowel. DRAINS: None. 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 DISPOSITION: Stable to postanesthesia care unit. INDICATIONS FOR PROCEDURE: The patient is a 76-year-old male who presented to the emergency department with acute onset abdominal pain. Workup was consistent with small bowel obstruction. Small bowel obstruction persisted to conservative management and plan was made to proceed to the Electronically Signed By: KIRIT MOCTEZUMA MD 01/31/22 1107 PATIENT NAME: MELL VIEIRA OPERATIVE REPORT DATE OF : 47 REPORT #: [id number] PHYSICIAN: KIRIT MOCTEZUMA MD PCP: KIZZY ALEJANDRA MD REPORT IS CONFIDENTIAL AND NOT TO BE RELEASED WITHOUT AUTHORIZATION [facility] [address] [place] [id number] Signed operating room for exploratory laparotomy. The risks and benefits of procedure were explained to the patient including, but not limited to bleeding, infection, risk of injury to bowel, risk of reoperation, worsening abdominal sepsis, postoperative mechanical ventilation, anastomotic dehiscence needing reoperating, seroma/hematoma/abscess formation needing drainage, multiorgan failure, DVT, PE, UT, stroke, and . The patient understood risks and signed informed consent. PROCEDURE IN DETAIL: After transport to the operating room and establishment of general endotracheal anesthesia, a midline incision was made in the patient's incision. The patient had a laparotomy and bowel resection for an obstructing mass prior to this procedure. Incision was taken down through subcutaneous tissues into the peritoneal cavity. Upon entry into the peritoneal cavity, a large amount of ascites was noted. This was suctioned off. Small bowel was eviscerated and there was noted to be a long ischemic segment encompassing distal jejunum to proximal ileum. This segment was noted to be encased in a closed loop obstruction through a mesenteric defect presumably from the patient's prior procedure. The ischemic segment was rapidly released and detorsed. There was no return of perfusion. It was made at this time to resect this segment. The segment was rapidly stapled off using an 80 SUZAN stapler. It was sent to Pathology. Decision was made to perform a primary and [id number] stapled anastomosis between the distal jejunum and mid ileum. This was performed in stapled fashion. The resultant anastomotic defect was closed using 2-0 PDS suture in running fashion. The small bowel was then run from ligament of Treitz to ileocecal junction and no additional mesenteric defects were noted. No addition ischemic segments were noted also. The initial mesenteric defect, which caused the closed loop obstruction was also closed in running fashion using 2-0 Vicryl suture. Copious irrigation was performed using 5 L of warm irrigation. Efflux was suctioned off. The small bowel was then returned into the peritoneal cavity. Fascia was approximated in running fashion using #1 PDS suture. Skin was approximated using sanaz. Needle and sponge counts were correct. The patient tolerated procedure without any complications and was transferred in stable condition to postanesthesia care unit. Kirit Moctezuma MD CU/KINGL /[id number] Electronically Signed By: KIRIT MOCTEZUMA MD 01/31/22 1107 PATIENT NAME: MELL VIEIRA OPERATIVE REPORT DATE OF : 47 REPORT #: [id number] PHYSICIAN: KIRIT MOCTEZUMA MD PCP: KIZZY ALEJANDRA MD REPORT IS CONFIDENTIAL AND NOT TO BE RELEASED WITHOUT AUTHORIZATION [address] [place] [address] Signed Copies: ~ Electronically Signed By: KIRIT MOCTEZUMA MD 01/31/22 1107 PATIENT NAME: MELL VIEIRA OPERATIVE REPORT DATE OF : 47 REPORT #: [id number] PHYSICIAN: KIRIT MOCTEZUMA MD PCP: KIZZY ALEJANDRA MD REPORT IS CONFIDENTIAL AND NOT TO BE RELEASED WITHOUT AUTHORIZATION
--- NOTE | 2022-01-31 11:32 | NUR ---
PATIENT UP AT THE BEDSIDE TO USE URINAL. PATIENT TOELRATED WELL. PT DENIES DIZZINESS UPON STANDING. PATIENT THEN OVER TO THE CHAIR. CALL LIGHT ON PATIENTS LAP. FRESH WATER PROVIDE. PATIENT PRN PAIN MEDICATION GIVEN. PATIENT ASKED "IS THERE SOMETHING THAT I CAN HAVE FOR PAIN THATS NOT STRONG". THIS RN WILL DISCUSS PAIN MEDICATION REGIMEN WHEN MD COMES IN TO SEE PATIENT. NOO OTHER NEEDS AT THIS TIME. WILL CONTINUE TO CLOSELY MONITOR.
--- NOTE | 2022-01-31 12:00 | NUR ---
UKATA IN TO SEE PATIENT. REVIEWED PLAN OF CARE WITH PATIENT. MD WITH RN VERBALLY GIVING ORDERS AND PLACED INTO [facility] AT THAT TIME. PER MD PATIENT CAN TRANSFER TO THE MEDICAL UNIT TODAY. ADVANCE DIET TO FULL LIQUID DIET. PATIENT PRN PAIN MEDICATIONS CHANGED PER MD. SEE EMAR FOR NEW ORDERS. WILL CONTINUE TO CLSOELY MONITOR AT THIS TIME.
--- NOTE | 2022-01-31 13:30 | NUR ---
PATIENT REPORT GIVEN TO MAXINE RUBIO. ALL QUESTIONS ANSWERED. MAXINE RN OVER TO ASSESS PATIENT WITH RN. REVIEWED PATIENTS ABD DRESSING AND PLAN OF CARE. NO OTHER QUESTIONS AT THIS TIME. MAXINE RN IN TO TAKE PATIENT TO HIS NEW ROOM ON THE MEDICAL UNIT.
--- NOTE | 2022-01-31 15:11 | NUR ---
PT WAS ABLE TO AMBULATE TO THE BATHROOM, SBA WITHOUT DIFFICULTY. PHYSICAL THERAPY IN ROOM TO WORK WITH PT.
--- NOTE | 2022-01-31 15:57 | NUR ---
PT REQUESTED PAIN MEDICATION AFTER WORKING WITH PHYSICAL THERAPY. PT RATES PAIN 4/10 IN THE ABDOMEN. NORCO GIVEN AT THIS TIME. CALL LIGHT WITHIN REACH. DENIES FURTHER NEEDS
--- NOTE | 2022-01-31 17:08 | NUR ---
PT RESTING IN CHAIR, WITH EYES CLOSED. CALL LIGHT WITHIN REACH.
--- NOTE | 2022-01-31 21:35 | NUR ---
Pt awake, alert and oriented, on room air, clear lungs, abd soft, tender, stated passing gas, midline incision covered with surgical dressing, Abd binder in place.IVF infusing RFA, SL LA patent, scds in place. Up to be w 1PA/FWW, to br, tolerated well, voided, back to bed, minimum to no help on return. Tolerating liquids. Coop with assessment and vitals. no c/o pain or n/v. "please wake me up when my pain meds are due"
--- NOTE | 2022-01-31 23:10 | NUR ---
PT REPORTS 4/10 ABD PAIN, PRN PAIN MED PROVIDED. NO OTHER NEEDS AT THIS TIME. CALL LIGHT IN REACH.
--- NOTE | 2022-01-31 23:53 | NUR ---
RESATAING, EYES CLOSED, NO FURTHER C/O PAIN, IVF INFUSING ABD BINDER IN PLACE
--- NOTE | 2022-02-01 01:04 | NUR ---
PT RESTING, EYES CLOSED, NO DISTRESS, IVF INFUSING S/O PROBLEMS, CALL LIGHT AT HANDS REACH
--- NOTE | 2022-02-01 01:46 | NUR ---
USED CALL LIGHT, UP TO BR, VOIDED, BACK TO BED, TOLERATED WEL. ABD BINDER IN PLACE, IVF INFUSING W/O PROBLEMS. NO C/O PAIN. CALL LIGHT AND FLUIDS AT BEDSIDE
--- NOTE | 2022-02-01 03:56 | NUR ---
Pt on room air, IVF infusing w/o problems. midline abdincision covered with surgical dressing, abd soft, tender, JUAN, passing gas, Up to br with 1PA/FWW voiding QS, tolerating walking to br and back to bed, Was medicated x1 with [place] c/o abd pain. uses call light, alert and oriented
--- NOTE | 2022-02-01 05:12 | NUR ---
PT PROVIDED WARM WASH CLOTH. PT DECLINED TO GET OUT OF BED AT THIS TIME. PT AGREED TO GET OUT OF BED LATER IN THE AM. NO FURTHER NEEDS. CALL LIGHT WITHIN REACH.
--- NOTE | 2022-02-01 05:25 | NUR ---
Pt used call light, up to br, voided, back to bed 1PA/FWW, steady gait, tolerated well, minimum of assist on return to be. IVF infusing w/o problems. alert and oriented, passing large amounts of rectal gas, abd soft, abd binder in place. scds in place. encouraged to increase ambulation outside stated understanding. c/o abd pain medicated with 2 norco.
--- NOTE | 2022-02-01 06:30 | NUR ---
PT ASSISTED TO BATHROOM USING FWW. PT ASSISTED TO CHAIR. PT GIVEN WARM BLANKET. PT BED MADE. NO NEEDS. CALL LIGHT WITHIN REACH.
--- NOTE | 2022-02-01 07:39 | NUR ---
REPORT RECEIVED FROM DOUGLAS RUBIO, ALL QUESTIONS ANSWERED. PT SITTING UP IN RECLINER, CALL LIGHT IN REACH.
--- NOTE | 2022-02-01 10:18 | NUR ---
PT WORKING WITH PHYSICAL THERAPY IN THERAPY ROOM.
--- NOTE | 2022-02-01 10:36 | NUR ---
pt back to room and in recliner. on phone. denies needs at this time. call light in reach.
--- NOTE | 2022-02-01 11:30 | NUR ---
PT SITTING UP IN RECLINER ON PHONE. CALL LIGHT IN REACH.
--- NOTE | 2022-02-01 13:04 | NUR ---
PT IN CHAIR. VITALS AND IS AND OS COMPLETE. PT ASSISTED TO BATHROOM USING FWW. PT ASSISTED BACK TO BED USING FWW. NO NEEDS. CALL LIGHT WITHIN REACH.
--- NOTE | 2022-02-01 13:22 | NUR ---
PT RESTING IN BED, REQUESTED TYLENOL FOR C/O 06/20 PAIN. DENIES FURTHER NEEDS AT THIS TIME. CALL LIGHT IN REACH.
--- NOTE | 2022-02-01 16:00 | NUR ---
PT ASSISTED TO BATHROOM SBA USING FWW. PT ASSISTED BACK TO BED BY LINE MECHANIC SBA. NO NEEDS. CALL LIGHT WITHIN REACH
--- NOTE | 2022-02-01 16:02 | NUR ---
REPORT RECEIVED FROM RN AND PT. CARE RESUMED. PT. IS RESTING WITH EYES CLOSED AND RESPIRATIONS ARE EVEN AND UNLABORED.
--- NOTE | 2022-02-01 17:32 | NUR ---
PT IN CHAIR AFTER DINNER. VITALS AND I/O'S COMPLETED, HAS NO OTHER NEEDS AT THIS TIME. CALL LIGHT WITHIN REACH.
--- NOTE | 2022-02-01 20:31 | NUR ---
PT WAS UP IN CHAIR AT BEGINING OF SHIFT. UP TO BR 1PA/FWW VOIDED, BACK TO BED, MINIMUM OF ASSIST ON RETURN, NO C/O ABD PAIN AT THIS TIME, ON ROOM AIR, CLEAR LUNGS, OPEN TO AIR MIDLINE INCISION WITH [address], SLIGHTLY PINKISH AT 3-4TH UPPER MICKI, CHI, EDGES WELL APPROXIMATED. DRY. JUAN ABD TENDER, PASSING GAS, SLIGHT DISTENTION NOTED UPPER ABD. NO BM. TOLERATING DIET WELL. IVF INFUSING SL la PATENT. PLEASANT, ALERT AND ORIENTED. USES CALL LIGHT
--- NOTE | 2022-02-01 22:06 | NUR ---
PT CALLS TO USE BR. SBA WITH FWW TO BR AND BACK TO BED. NO OTHER NEEDS. CALL LIGHT IN REACH.
--- NOTE | 2022-02-01 23:06 | NUR ---
EYES CLOSED, ON ROOM AIR, NO DISTRESS, IVF INFUSING W/O PROBLEMS, CALL LIGHT AND FLUIDS AT HANDS REACH
--- NOTE | 2022-02-02 01:09 | NUR ---
USED CALL LIGHT, UP TO BR, SBA/FWW, VOIDED, TOLERATED WELL, BACK TO BED, NO ASSIST GETTING BACK TO BED. IVF INFUSING W/O PROBLEMS, DECLINES SCDS AT THIS TIME. MIDLINE INCISION OPEN TO AIR MICKI CDI. JUAN, PASSING GAS, STILL NO BM. TOLERATING LIQUIDS WELL. LEFS ELEVATED. COOP WITH ASSESSMENT, C/O ABD PAIN 3/10 ABD PIN MEDICATED WITH 1 NORCO
--- NOTE | 2022-02-02 02:38 | NUR ---
UP TO BR, VOIDED, BACK TO BED, TOLERATED WELL, NO FURTHER C/O PAIN, USES CALL LIGHT
--- NOTE | 2022-02-02 04:40 | NUR ---
Pt up to BR, voided, ambulated w SBA and w/o walker tolerated very well. IVF infusing w/o problems. midline abd incision open to air, sanaz inplace. no c/o pain
--- NOTE | 2022-02-02 04:42 | NUR ---
Pt alert, oriented, on room air, clear lungs, midline abd incision with sanaz in place, pushpa, slight distention upper abd, passing gas, no bm. tolerating soft diet, no emesis. Up to br with minimum of assist and walker most times, tolerating well, medicated with Motrin and [place] with good pain relief. IVF infusing w/o problems. legs elevated. uses call light.
--- NOTE | 2022-02-02 06:30 | NUR ---
PT IN BED. PT ASSISTED TO BATHROOM USING FWW SBA. BED MADE. PT ASSISTED BACK TO CHAIR USING FWW SBA. WARM BLANKET GIVEN. WARM WASH CLOTH GIVEN. TOWEL GIVEN TO PLACE UNDER PTS HEAD PER PTS REQ. NO FURTHER NEEDS. CALL LIGHT WITHIN REACH.
--- NOTE | 2022-02-02 07:10 | NUR ---
Report from Pedro Pablo Quintanilla RN. Patient sitting up in recliner. Pillows adjusted per request. Denies other needs at this time. Call light in reach.
--- NOTE | 2022-02-02 09:30 | NUR ---
Dr. Mcintosh in to see patient. SHAHEED Mcintosh/Ruby Richardson, RN to DC every other staple and informed patient will be DC'd to home today. [address] [place] DC'd, assessment completed. IV catheter's DC'd X2, catheters intact. AM medications administered as prescribed, takes without difficulty. Patient states he would like to shower prior to leaving. Denies other needs at this time. Call light in reach.
--- NOTE | 2022-02-02 09:39 | NUR ---
PT IN CHAIR. VITALS AND IS AND OS COMPLETE. NO NEEDS. CALL LIGHT WITHIN REACH.
[2022-02-02] MEDS ORDERED: HYDROCODON-ACE1 EA10 PO (10:08)
[2022-02-02] MEDS ORDERED: VENTOLIN HFA18 GM (10:10)
[2022-02-02] MEDS ORDERED: ADVIL200 M1 PO (10:10)
--- NOTE | 2022-02-02 11:41 | DS ---
[facility] [address], [place] [address] Signed ADMISSION DATE: 01/28/2022 DISCHARGE DATE: 02/02/2022 FINAL DIAGNOSIS: Small bowel obstruction with necrotic bowel from internal hernia. PROCEDURES: 1. Laparotomy with small bowel resection and stapled [id number]-mt-[id number] anastomosis. 2. CT scan of the abdomen and pelvis x2. 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 He underwent removal of the splenic flexure of his colon along with the spleen. A small rent in the diaphragm was also closed as well. He developed left-sided abdominal pain with nausea and vomiting. He came to the emergency room for evaluation. His white count was normal and the CT scan showed evidence for the closed-loop obstruction from an internal hernia. In Dr. Wills's absence, our local surgeon Dr. Fuller was contacted. HOSPITAL COURSE: Bay was admitted to Dr. Fuller with the above findings. He had a repeat CT scan with oral contrast, which confirmed his closed-loop obstruction. He was taken to the operating room that day on 01/28/2022 for his laparotomy and resection of the distal jejunum and proximal ileum. He had necrotic small bowel. The anastomosis was performed [id number] in stapled fashion. The internal hernia had been closed. Bay did well both intraop and postop. Dr. Fuller had return to [place], and I had taken over the last couple of days. Bay has done exceptionally well. He is tolerating his soft diet with lots of flatus, but no bowel movement. His abdomen is completely soft, flat, nontender. Incision is healing well without any local signs or symptoms of infection. He is back on oral medications as well. He is taking just a small amount of Troy mainly at night to sleep. At this point, we are going to be discharging him to home. DISCHARGE PLANS AND MEDICATIONS: Bay is going to be discharged to his house and he has several friends here in town that can help him and are available to him. We are going to give him a prescription for Troy 5/325 one tablet p.o. q.6 hours for severe postoperative pain. We will dispense 10 tablets with no refills. He can use Tylenol or ibuprofen purchase [id number] for [id number]-[id number] postoperative pain. He will resume his aspirin in two days. He will resume all his other chronic medications at home today including his supplements. Every other staple will be removed. His incision will be left open to air. He will shower and bathe as usual. He can perform his activities of daily living including Electronically Signed By: MACKENZIE MACIEL MD 02/02/22 1141 PATIENT NAME: BAY VIEIRA DISCHARGE SUMMARY DATE OF : 47 REPORT #: [id number] PHYSICIAN: MACKENZIE MACIEL MD PCP: KIZZY ALEJANDRA MD REPORT IS CONFIDENTIAL AND NOT TO BE RELEASED WITHOUT AUTHORIZATION [facility] [address], [place] [address] Signed down stairs and showering and bathing as usual. He should not do any heavy pushing, pulling, or lifting over about 20 pounds. He is not able to work at this point. He has already seen his medical oncologist, Dr. Citlalli Estrada for the B-cell lymphoma. Apparently, the PET scan and the echocardiogram have been ordered. He will also follow up with Dr. Wills here in about a week for surgical follow up and remove the rest of the asnaz. I have reviewed this with him in the last two days as well as his nurse. He has expressed understanding and agrees with the above plan. Mackenzie Maciel MD ALB/MODL /[id number] cc: Patient Chart MD Citlalli Jovel, MD Ayush Wills, MD Mackenzie Maciel MD Copies: KIZZY ALEJANDRA MD,CITLALLI WILLS,AYUSH MACIEL,MACKENZIE Molina MD ~ Electronically Signed By: MACKENZIE MACIEL MD 02/02/22 1141 PATIENT NAME: BAY VIEIRA DISCHARGE SUMMARY DATE OF : 47 REPORT #: [id number] PHYSICIAN: MACKENZIE MACIEL MD PCP: KIZZY ALEJANDRA MD REPORT IS CONFIDENTIAL AND NOT TO BE RELEASED WITHOUT AUTHORIZATION
--- NOTE | 2022-02-07 15:32 | NUR ---
SPOKE WITH PATIENT BY PHONE FOR POST DISCHARGE CALL. PATIENT FEELS GOOD. SAYS FIRST COUPLE DAYS OUT WERE ROUGH BUT EACH DAY FEELS BETTER. HE STATES HE WAS ABLE TO WALK OUTSIDE EVEN TODAY FOR OVER HALF HOUR. STATES HE IS EATING AND DRINKING AND TOOK A DULCOLAX THIRD DAY AND HAS REGULAR BM DAILY NOW. STATES HE CALLED DR WILLS OFFICE THURSDAY, THEY SAID THEY WOULD GET BACK TO HIM ON F/U APPOINTMENT. HE STATED HE HAS ALL HIS MEDICATIONS AND IS TAKING THEM. FELT HE UNDERSTANDS WHAT TO WATCH FOR AND THAT HE WOULD CALL DR WILLS OR PCP OR RETURN TO HOSPITAL. HE STATES HE WAS WONDERING ABOUT SOME ANKLE SWELLING HE HAD FIRST FEW DAYS, BUT ONCE HE STARTED GETTING UP MORE IT HAS GOTTEN BETTER. WE DISCUSSED THIS. ENCOURAGED HIM TO LET DOCTORS KNOW IF THIS RETURNS OR WORSENS. NO FURTHER QUESTIONS.
== END 2022-02-02 11:00 | disposition home or self-care (01) | DRG 330 ==
LOC: ED 15:12 → MS 15:13 → ED 01-28 15:13 → MS 01-28 16:17 → CCU 01-28 16:17 → MS 01-31 14:00
PROVIDERS: ADMIT Surgery; ATTEND Surgery
PROC: 0DBB0ZZ Excision of Ileum, Open Approach (ICD-10-PCS; 2022-01-28)
PROC: 0DBA0ZZ Excision of Jejunum, Open Approach (ICD-10-PCS; principal; 2022-01-28 12:00)
PROC: 30233N1 Transfusion of Nonautologous Red Blood Cells into Peripheral Vein, Percutaneous Approach (ICD-10-PCS; 2022-01-30)
DX: K46.0 Unspecified abdominal hernia with obstruction, without gangrene (principal); C85.90 Non-Hodgkin lymphoma, unspecified, unspecified site; K55.9 Vascular disorder of intestine, unspecified; E87.20 Acidosis, unspecified; E03.9 Hypothyroidism, unspecified; E78.00 Pure hypercholesterolemia, unspecified; Z20.822 Contact with and (suspected) exposure to COVID-19; D64.9 Anemia, unspecified; E87.6 Hypokalemia; E83.42 Hypomagnesemia; Z90.49 Acquired absence of other specified parts of digestive tract; Z96.643 Presence of artificial hip joint, bilateral; Z79.899 Other long term (current) drug therapy; Z79.02 Long term (current) use of antithrombotics/antiplatelets; Z79.82 Long term (current) use of aspirin
CPT/HCPCS: 36415; 36430; 71045; 74176; 74177; 76942; 80048; 80053; 81001; 83605; 83690; 83735; 84100; 85025; 85060; 86850; 86900; 86901; 86922; 88307; 93005; 93010; 96361; 96375; 96376; 97110; 97116; 97162; 99285-25; A9270; C9803; J0131; J0330; J0694; J1100; J1170; J1790; J1885; J2270; J2370; J2405; J2704; J2795; J3010; J3480; J7030; J7121; P9016; Q9967; U0003